=== PATIENT | female | born 1960 ===

== ENCOUNTER 2017-03-12 21:34 | Emergency (ER) | payer MEDICAID ==
[2017-03-12 22:02] VITALS: BP 114/71; PULSE 88; RESP 18; TEMP 97.9; O2SAT 100
--- NOTE | 2017-03-12 22:45 | ED PDOC ---
HPI: General Adult Time Seen by Provider: 03/12/17 22:15 Chief Complaint (Nursing): Lower Extremity Problem/Injury History Per: Patient Additional Complaint(s): Pt. states for the past 3 weeks she's had atraumatic constant non-radiating L sided calf pain. Describes pain as a "tightening." Denies SOB, chest pain, palpitations, hemoptysis, hx of DVT or PE, recent prolonged immobilization of limb, recent surgery. Past Medical History Reviewed: Historical Data, Nursing Documentation, Vital Signs Vital Signs: Last Vital Signs Temp 97.9 F 03/12/17 21:59 Pulse 88 03/12/17 21:59 Resp 18 03/12/17 21:59 BP 114/71 03/12/17 21:59 Pulse Ox 100 03/12/17 22:45 - Family History Family History: States: No Known Family Hx - Home Medications Home Medications: Ambulatory Orders Medication Instructions Recorded Naproxen [Naprosyn] 500 mg PO BID PRN #14 tab 03/13/17 - Allergies Allergies/Adverse Reactions: Allergies Allergy/AdvReac Type Severity Reaction Status Date / Time No Known Allergies Allergy Verified 03/12/17 21:59 Review of Systems ROS Statement: Except As Marked, All Systems Reviewed And Found Negative Musculoskeletal: Positive for: Leg Pain Physical Exam - Physical Exam Appears: Positive for: Well, Non-toxic, No Acute Distress Skin: Positive for: Normal Color, Warm. Negative for: Rash Pulses-Dorsalis Pedis (L): 2+ Pulses-Dorsalis Pedis (R): 2+ Extremity: Positive for: Normal ROM, Calf Tenderness (minimal L calf tenderness but no swelling; no R calf tenderness or swelling; negative Becka's sign b/l) Neurologic/Psych: Positive for: Alert, Oriented - ECG O2 Sat by Pulse Oximetry: 100 - Progress ED Course And Treament: Duplex b/l lower extremity vein: no DVT Disposition - Clinical Impression Clinical Impression: Calf pain - Patient ED Disposition Is Patient to be Admitted: No - Disposition Referrals: [facility] [Outside] Disposition: Routine/Home Disposition Time: 00:02 Condition: STABLE Prescriptions: Naproxen [Naprosyn] 500 mg PO BID PRN #14 tab PRN Reason: Pain Instructions: Leg Pain (ED) Forms: [employer] (Telugu) Print Language: PRYDEINIG
--- NOTE | 2017-03-12 23:44 | US ---
EXAM: US Duplex Bilateral Lower Extremity Veins CLINICAL HISTORY: 57 years old, female; Pain; Leg, lower; Bilateral; Additional info: L calf pain TECHNIQUE: Real-time ultrasound scan of the veins of the bilateral lower extremities with color Doppler flow, spectral waveform analysis and compression. COMPARISON: No relevant prior studies available. FINDINGS: Right deep veins: Normal color and spectral Doppler flow. Normal compressibility. No deep vein thrombosis from common femoral to popliteal vein. Right superficial veins: Unremarkable. Left deep veins: Normal color and spectral Doppler flow. Normal compressibility. No deep vein thrombosis from common femoral to popliteal vein. Left superficial veins: Unremarkable. Soft tissues: No popliteal cyst. IMPRESSION: 1. No evidence of DVT within the lower extremities.
== END 2017-03-13 00:13 | disposition home or self-care (01) ==
LOC: H.ER 21:34
DX: M79.605 Pain in left leg (principal)

== ENCOUNTER 2017-11-13 02:39 | Emergency (ER) | payer MEDICAID ==
[2017-11-13 02:52] VITALS: BP 107/71; PULSE 71; RESP 16; O2SAT 98
[2017-11-13] MEDS ORDERED: Albuterol-Ipratrop 3 mg / 0.5 (3 ml) UD INH STA (03:03)
[2017-11-13] MEDS ORDERED: Albuterol-Ipratrop 3 mg / 0.5 (3 ml) UD ONE (03:21)
--- NOTE | 2017-11-13 03:50 | ED PDOC ---
HPI: CCC, URI, Sore Throat Time Seen by Provider: 11/13/17 02:56 Chief Complaint (Nursing): ENT Problem History Per: Patient History/Exam Limitations: no limitations Onset/Duration Of Symptoms: Days (x 2-3) Additional Complaint(s): 57-year-old female presents to ED complaining of flu-like symptoms for 2 days. Reports sore throat and cough. Reports chest tightness at times. Reports taking Naprosyn and Nyquil with no relief. Denies vomiting or diarrhea. States received flu shot beginning of this year. PMD: Erika Kyle Past Medical History Reviewed: Historical Data, Nursing Documentation, Vital Signs Vital Signs: Last Vital Signs Temp 97.7 F 11/13/17 04:44 Pulse 71 11/13/17 02:50 Resp 16 11/13/17 02:50 BP 107/71 11/13/17 02:50 Pulse Ox 98 11/13/17 03:53 - Medical History PMH: No Chronic Diseases - Surgical History Surgical History: (x 2) - Family History Family History: States: Unknown Family Hx - Social History Current smoker - smoking cessation education provided: No Alcohol: None Drugs: Denies - Home Medications Home Medications: Ambulatory Orders Medication Instructions Recorded Naproxen [Naprosyn] 500 mg PO BID PRN #14 tab 03/13/17 Albuterol Sulfate [Proair Hfa] 0.09 mg IH Q6 PRN #1 inh 11/13/17 Benzonatate [Tessalon Perle] 100 mg PO TID PRN #15 capsule 11/13/17 - Allergies Allergies/Adverse Reactions: Allergies Allergy/AdvReac Type Severity Reaction Status Date / Time No Known Allergies Allergy Verified 03/12/17 21:59 Review of Systems ROS Statement: Except As Marked, All Systems Reviewed And Found Negative ENT: Positive for: Other (Sore Throat) Respiratory: Positive for: Cough Gastrointestinal: Negative for: Vomiting, Diarrhea Physical Exam - Reviewed Nursing Documentation Reviewed: Yes Vital Signs Reviewed: Yes - Physical Exam Appears: Positive for: Well Head Exam: Positive for: ATRAUMATIC, NORMAL INSPECTION, NORMOCEPHALIC Skin: Positive for: Normal Color, Warm, Dry Eye Exam: Positive for: Normal appearance, EOMI, PERRL ENT: Positive for: Pharynx Is (Erythematous) Neck: Positive for: Normal Cardiovascular/Chest: Positive for: Regular Rate, Rhythm Respiratory: Positive for: Normal Breath Sounds. Negative for: Respiratory Distress Gastrointestinal/Abdominal: Positive for: Normal Exam Back: Positive for: Normal Inspection Extremity: Positive for: Normal ROM Neurologic/Psych: Positive for: Alert, Oriented (x 3) - ECG O2 Sat by Pulse Oximetry: 98 (RA) Pulse Ox Interpretation: Normal Medical Decision Making Medical Decision Making: Time: 03:03 Impression(s): Flu-like Symptoms, Flu, Strep Plan: - CXR - Duoneb 3 mg/0.5 mg (3 ml) UD - predniSONE Tab - Peak Flow Pre/Post Treatment - Influenza a/b - Rapid Strep Group A Antigen Chest Xray shws NAD Flu/strep ag negative Patient reports improvement in symptoms and is stable upon discharge Dx URI ----- Scribe Attestation: Documented by Maykel Whittaker, acting as a scribe for Aguila Little MD. Provider Scribe Attestation: All medical record entries made by the Scribe were at my direction and personally dictated by me. I have reviewed the chart and agree that the record accurately reflects my personal performance of the history, physical exam, medical decision making, and the department course for this patient. I have also personally directed, reviewed, and agree with the discharge instructions and disposition. Disposition - Clinical Impression Clinical Impression: Upper respiratory infection - Disposition Disposition: Routine/Home Disposition Time: 04:30 Condition: STABLE Prescriptions: Albuterol Sulfate [Proair Hfa] 0.09 mg IH Q6 PRN #1 inh PRN Reason: Shortness Of Breath Benzonatate [Tessalon Perle] 100 mg PO TID PRN #15 capsule PRN Reason: Cough Instructions: Viral Upper Respiratory Infection, Adult (DC) Forms: [employer] (Hungarian)
[2017-11-13 04:45] VITALS: TEMP 97.7
--- NOTE | 2017-11-13 10:28 | RAD ---
HISTORY: cough COMPARISON: No prior. TECHNIQUE: Chest PA and lateral FINDINGS: LUNGS: No active pulmonary disease. PLEURA: No significant pleural effusion identified. No pneumothorax apparent. CARDIOVASCULAR: Normal. OSSEOUS STRUCTURES: No significant abnormalities. VISUALIZED UPPER ABDOMEN: Normal. OTHER FINDINGS: None. IMPRESSION: No active disease.
== END 2017-11-13 04:45 | disposition home or self-care (01) ==
LOC: H.ER 02:39
DX: J06.9 Acute upper respiratory infection, unspecified (principal)

== ENCOUNTER 2018-03-30 14:17 | Emergency (ER) | payer MEDICAID ==
[2018-03-30 14:40] VITALS: BP 102/71; PULSE 83; RESP 16; TEMP 97.9; O2SAT 98
--- NOTE | 2018-03-30 16:06 | ED PDOC ---
Upper Extremity Pain/Injury Time Seen by Provider: 03/30/18 15:01 Chief Complaint (Nursing): Upper Extremity Problem/Injury Chief Complaint (Provider): Right Wrist Pain History Per: Patient History/Exam Limitations: no limitations Onset/Duration Of Symptoms: Days (x4) Current Symptoms Are (Timing): Still Present Additional Complaint(s): 58 year old female presents to the ED for evaluation of atraumatic right wrist pain, worse with ROM, radiating to her fingers for the past four days; no associated weakness. Denies injury or trauma. 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 PMD: Edna Aaron Past Medical History Reviewed: Historical Data, Nursing Documentation, Vital Signs Vital Signs: Last Vital Signs Temp 97.9 F 03/30/18 14:36 Pulse 83 03/30/18 14:36 Resp 16 03/30/18 14:36 BP 102/71 03/30/18 14:36 Pulse Ox 98 03/30/18 14:36 - Medical History PMH: No Chronic Diseases - Surgical History Surgical History: (x 2) - Family History Family History: States: Unknown Family Hx - Home Medications Home Medications: Ambulatory Orders Medication Instructions Recorded Naproxen [Naprosyn] 500 mg PO BID PRN #14 tab 03/13/17 Albuterol Sulfate [Proair Hfa] 0.09 mg IH Q6 PRN #1 inh 11/13/17 Benzonatate [Tessalon Perle] 100 mg PO TID PRN #15 capsule 11/13/17 - Allergies Allergies/Adverse Reactions: Allergies Allergy/AdvReac Type Severity Reaction Status Date / Time No Known Allergies Allergy Verified 03/12/17 21:59 Review of Systems ROS Statement: Except As Marked, All Systems Reviewed And Found Negative Constitutional: Negative for: Other (injury or trauma) Musculoskeletal: Positive for: Other (right wrist pain radiating to fingers, worse with ROM) Physical Exam - Reviewed Nursing Documentation Reviewed: Yes Vital Signs Reviewed: Yes - Physical Exam Appears: Positive for: No Acute Distress Skin: Positive for: Normal Color, Warm, Dry. Negative for: Rash Eye Exam: Positive for: Normal appearance Cardiovascular/Chest: Positive for: Regular Rate, Rhythm Respiratory: Negative for: Accessory Muscle Use, Respiratory Distress Extremity: Positive for: Normal ROM (but increased pain with full extension of right wrist), Tenderness (mild over the volar right wrist), Capillary Refill (less than 2 seconds), Other (positive tinel's sign) Neurologic/Psych: Positive for: Alert, Oriented (x3). Negative for: Motor/Sensory Deficits (sensation intact to all fingers of right hand, warm and mobile) - ECG O2 Sat by Pulse Oximetry: 98 (RA) Pulse Ox Interpretation: Normal Medical Decision Making Medical Decision Making: Time: 155 Initial Impression: carpel tunnel Initial Plan: --Motrin 600mg PO --Right wrist XR On reevaluation, pt informed that XR results show no fx or dislocation of the wrist. Discussed at lengths with pt via dental hygiene administrative assistant that the exam and history are consistent with carpel tunnel. Immobilization techniques and anti- inflammatory medications will be used to treat sxs. If not improved in 2-3 days, she is advised to follow up with her ortho for further evaluation. Scribe Attestation: Documented by Chaya Baxter, acting as a scribe for Temitope Vasquez PA-C. Provider Scribe Attestation: All medical record entries made by the Scribe were at my direction and personally dictated by me. I have reviewed the chart and agree that the record accurately reflects my personal performance of the history, physical exam, medical decision making, and the department course for this patient. I have also personally directed, reviewed, and agree with the discharge instructions and disposition. Disposition - Clinical Impression Clinical Impression: Carpal tunnel syndrome of right wrist - Disposition Referrals: Gino Nicole MD [Staff Provider] - Disposition: Routine/Home Disposition Time: 16:20 Condition: STABLE Instructions: Carpal Tunnel Syndrome (DC) Forms: [employer] (Uzbek), [employer] (Nigerian) Print Language: MAORI
--- NOTE | 2018-03-30 16:38 | RAD ---
Date of service: 03/30/2018 PROCEDURE: Right Wrist Radiographs. HISTORY: wrist pain COMPARISON: None. FINDINGS: BONES: Normal. No fracture. JOINTS: Normal. No dislocation. SOFT TISSUES: Normal. OTHER FINDINGS: None. IMPRESSION: Normal right wrist radiographs.
== END 2018-03-30 17:20 | disposition home or self-care (01) ==
LOC: H.ER 14:17
DX: G56.01 Carpal tunnel syndrome, right upper limb (principal)